=== PATIENT | female | born 1955 | race Caucasian/White ===

== ENCOUNTER 2017-04-04 11:20 | Day surgery (SDC) | payer OTHER ==
[~2017-04-04 11:20] MED LIST: ANCEF/STERILE WATER 2 GM/20 ML IV NR; MARCAINE 0.5% INFILTRATI ONE; XYLOCAINE 1% 20 mL INFILTRATI ONE
[2017-04-04 12:29] LABS: Basophils % (Auto) 0.6 % (0.0-1.8); Eosinophils % (Auto) 1.1 % (0.0-4.3); Hematocrit 41.1 % (30.3-42.9); Hemoglobin 13.9 gm/dl (10.1-14.3); Mean Corpuscular HGB Conc 34 % (30-34); Mean Corpuscular Hemoglobin 28 pg (28-32); Mean Corpuscular Volume 82 fl (79-97); Platelet Count 236 K/mm3 (140-440); Red Blood Count 5.02 M/mm3 (3.65-5.03); White Blood Count 7.5 K/mm3 (4.5-11.0)
[2017-04-04 12:55] LABS: Alanine Aminotransferase 20 units/L (7-56); Albumin 4.5 g/dL (3.9-5); Albumin/Globulin Ratio 1.6 %; Alkaline Phosphatase 80 units/L (35-129); Anion Gap 18 mmol/L; Blood Urea Nitrogen 11 mg/dL (7-17); Calcium 8.9 mg/dL (8.4-10.2); Carbon Dioxide 29 mmol/L (22-30); Chloride 103.1 mmol/L (98-107); Glucose 113 mg/dL (65-100); Potassium 4.7 mmol/L (3.6-5.0); Sodium 145 mmol/L (137-145); Total Protein 7.3 g/dL (6.3-8.2)
[2017-04-04] MEDS ORDERED: MARCAINE 0.5% 30 ML INFILTRATI ONE (13:45)
[2017-04-04] MEDS ORDERED: XYLOCAINE 1% 20 mL ONE (13:46)
[2017-04-04] MEDS ORDERED: MARCAINE-EPI 0.5%-1:200,000 INFILTRATI ONE (13:47)
[2017-04-04] MEDS ORDERED: LACTATED RINGERS 1,000 ML ONE (13:52)
[2017-04-04] MEDS ORDERED: DIPRIVAN 10 MG/ML IV ONE (13:54)
[2017-04-04] MEDS ORDERED: DILAUDID ONE (13:55)
[2017-04-04] MEDS ORDERED: XYLOCAINE MPF 2% ONE (13:58)
--- NOTE | 2017-04-04 13:59 | Anesthesia Consultation ---
Anesthesia Consult and Med Hx Date of service: 04/04/17 - Airway Anesthetic Teeth Evaluation: Good ROM Head & Neck: Adequate Mental/Hyoid Distance: Adequate Mallampati Class: Class II Intubation Access Assessment: Good - Pulmonary Exam CTA: Yes - Cardiac Exam Cardiac Exam: No Murmur - Pre-Operative Health Status ASA Pre-Surgery Classification: ASA2 Proposed Anesthetic Plan: General - Pulmonary Hx Smoking: No Hx Sleep Apnea: No (BHARATI PRE SCREEN LOW RISK) - Cardiovascular System Hx Hypertension: No - Hematic Hx Anemia: Yes (NOT RECENT) - Other Systems Hx Cancer: No
[2017-04-04] MEDS ORDERED: LACTATED RINGERS 1,000 ML IV SCH (14:00)
--- NOTE | 2017-04-04 14:00 | Anesthesia Day of Surgery ---
Anesthesia Day of Surgery - Day of Surgery Patient Examined: Yes Patient H&P Reviewed: Yes Patient is NPO: Yes
[2017-04-04] MEDS ORDERED: ROBINUL ONE (14:27)
[2017-04-04] MEDS ORDERED: ZOFRAN ONE (14:27)
[2017-04-04 18:14] VITALS: BP 132/86
--- NOTE | 2017-04-04 21:01 | Operative Report ---
PREOPERATIVE DIAGNOSIS: Recurrent mass, left shoulder. POSTOPERATIVE DIAGNOSIS: Recurrent mass, left shoulder. PROCEDURE: Removal of mass recurrent, left shoulder. ANESTHESIA: General. BLOOD LOSS: Minimal. FINDINGS: The patient had a multiloculated and lobulated lipoma that was good 15 x 5 x 5 cm located over the lateral aspect of the left shoulder impinging on the pectoralis muscle underneath it. I had to shave a little bit from the pectoralis muscle to acquire good margin. DESCRIPTION OF PROCEDURE: With the patient in supine position, prepped and draped in usual fashion. I made transverse incision over the mass as mentioned above over the old scar, deepened through subcutaneous tissue. I was able to remove the mass slowly using electrocautery all the way down to the healthy looking tissue. I was very much satisfied. It looks like multilobulated and loculated lipoma. We had good hemostasis using electrocautery. Then, I had to spray some Shana within the depths of the wound. Then, the wound was closed in layers. I used 3-0 Vicryl for the subcutaneous tissue interruptedly and the skin was reinforced with 2-0 nylon interrupted sutures. The patient was then transferred to the recovery room in good condition after having good hemostasis and good bandage. I talked to her son. I want to see her about a week or 10 days and go from there. JOB# [id number] ANASTACIA/ALVARO
--- NOTE | 2017-04-04 23:29 | Discharge Summary ---
HOSPITAL COURSE: This patient came because of recurrent mass in the left shoulder. She had this removed about 8 years ago. At that point, it showed lipoma. At this time, it is very large. It measures about a good 12 x 5 x 5 cm. This was accomplished under general anesthesia and I was able to excise the mass in total. It impinges little bit to the muscle and the area. A bandage was applied. The patient was then transferred to the recovery room for discharge home to be seen in my office in 1 week. I asked her son to take Tylenol No. 3 every 4 hours p.r.n. for pain, to see me in about one week in my office while waiting on the path report. JOB# [id number] ANASTACIA/ALVARO
== END 2017-04-04 16:30 | disposition home or self-care (01) ==
LOC: OR 11:20
PROVIDERS: ATTEND Surgery
DX: D17.22 Benign lipomatous neoplasm of skin and subcutaneous tissue of left arm (principal); Z86.2 Personal history of diseases of the blood and blood-forming organs and certain disorders involving the immune mechanism
CPT/HCPCS: 24071; 36415; 80053; 85025; 88304; J0690; J1170; J2405; J2704; J7120; 88307